=== PATIENT | male | born 1995 | race Caucasian/White ===

== ENCOUNTER 2017-05-05 03:15 | Observation (INO) | END 2017-05-05 20:20 | disposition home or self-care (01) ==

== ENCOUNTER 2018-01-24 21:45 | Emergency (ER) | END 2018-01-25 03:29 | disposition home or self-care (01) ==

== ENCOUNTER 2018-11-20 11:55 | Emergency (ER) | payer OTHER ==
[~2018-11-20] VITALS: Ht 162.6 cm; Wt 74.4 kg
[~2018-11-20 11:55] MED LIST: ACET500C5 PO; CIPR500T4 PO; DOCU-144 PO; HYDR-4011 PO; MAG-19 PO; ONDA4TAB14 PO; RANI150T35 PO
[2018-11-20 12:03] VITALS: Ht 162.6 cm; Wt 74.4 kg
[2018-11-20] MEDS ORDERED: ONDANSETRON 4 MG INJ IV STA (12:28)
[2018-11-20] MEDS ORDERED: ACETAMINOPHEN 500 MG TAB PO STA (12:28)
[2018-11-20] MEDS ORDERED: SOD CHLORIDE 0.9% 1,000 ML IV STA (12:28)
[2018-11-20 13:54] VITALS: BP 101/56; PULSE 94; RESP 16
== END 2018-11-20 13:55 | disposition home or self-care (01) ==
LOC: FTE 11:55
DX: A08.4 Viral intestinal infection, unspecified (principal)
CPT/HCPCS: 36415; 80053; 81001; 83690; 85025; 96361; 96374; J2405; J7030; Z7502; Z7610